=== PATIENT | male | born 1960 | race Caucasian/White ===

== ENCOUNTER 2017-04-29 20:12 | Emergency (ER) | payer BC ==
[2017-04-29] MEDS ORDERED: HYDROmorphone 1 MG/ML Syringe IVPUSH ONE ×2 (20:38→23:10)
[2017-04-29] MEDS ORDERED: Ondansetron 4 MG/2 ML SDV IVPUSH ONE (20:39)
--- NOTE | 2017-04-29 20:43 | EDM.PDOC ---
ED HPI GENERAL MEDICAL PROBLEM - General Chief Complaint: Genitourinary Problem Stated Complaint: RI SI PAIN Time Seen by Provider: 04/29/17 20:28 Source of Information: Reports: Patient History Limitations: Reports: No Limitations - History of Present Illness INITIAL COMMENTS - FREE TEXT/NARRATIVE: 57 years old male patient presented with right flank pain started around 3 PM. Constant. Radiates forward to his right side right lower quadrant and right groin area. Constant. Aching. Associated with nausea but no vomiting. Denies any fever. Also complaining of urinary frequency, urgency and feeling of incomplete emptying. Denies any blood in the urine or stool. Denies any diarrhea or constipation. Denies any chest pain or shortness breath. Nothing makes the pain better or worse. Right Groin Pain Score (Numeric/FACES): 10 - Related Data Allergies Allergy/AdvReac Type Severity Reaction Status Date / Time No Known Allergies Allergy Verified 04/29/17 20:20 Past Medical History Cardiovascular History: Reports: Hypertension Genitourinary History: Reports: Renal Calculus - Past Surgical History GI Surgical History: Reports: Appendectomy Social & Family History - Tobacco Use Smoking Status *Q: Unknown Ever Smoked ED ROS GENERAL - Review of Systems Review Of Systems: ROS reveals no pertinent complaints other than HPI. ED EXAM, RENAL/ - Physical Exam Exam: See Below Exam Limited By: No Limitations General Appearance: Alert, WD/WN, No Apparent Distress Ears: Normal External Exam, Normal Canal, Hearing Grossly Normal, Normal TMs Throat/Mouth: Normal Inspection, Normal Lips, Normal Teeth, Normal Gums, Normal Oropharynx, Normal Voice, No Airway Compromise Head: Atraumatic, Normocephalic Neck: Normal Inspection, Supple, Non-Tender, Full Range of Motion Respiratory/Chest: No Respiratory Distress, Lungs Clear, Normal Breath Sounds, No Accessory Muscle Use, Chest Non-Tender Cardiovascular: Normal Peripheral Pulses, Regular Rate, Rhythm, No Edema, No Gallop, No JVD, No Murmur, No Rub GI/Abdominal: Normal Bowel Sounds, Soft, Non-Tender, No Distention, No Abnormal Bruit, No Mass, Pelvis Stable, Tender, Other (Mild tenderness on the right flank area and right side of his abdomen.). No: Distended, Guarding, Rigid, Rebound, Mass, Hepatomegaly, Splenomegaly Course - Vital Signs Last Recorded V/S: Last Vital Signs Temp 36.9 C 10/14/17 21:35 Pulse 74 04/29/17 21:35 Resp 15 04/29/17 21:35 BP 164/96 H 04/29/17 21:35 Pulse Ox 92 L 04/29/17 21:35 - Orders/Labs/Meds Orders: Active Orders 24 hr Category Date Time Status Abdomen Pelvis wo Cont [CT] Urgent Exams 04/29/17 20:35 Taken Sodium Chloride 0.9% [Normal Saline] 1,000 ml Med 04/29/17 20:45 Active IV .BOLUS Sodium Chloride 0.9% [Normal Saline] 1,000 ml Med 04/29/17 23:15 Active IV ASDIRECTED Medication Orders Sodium Chloride (Normal Saline) 1,000 mls @ 999 mls/hr IV .BOLUS ASHISH Last Admin: 04/29/17 21:09 Dose: 999 mls/hr Sodium Chloride (Normal Saline) 1,000 mls @ 125 mls/hr IV ASDIRECTED ASHISH Last Admin: 04/29/17 23:28 Dose: 125 mls/hr Labs: Laboratory Tests 04/29/17 04/29/17 04/29/17 Range/Units 20:53 20:53 21:03 WBC 12.1 H (4.5-11.0) K/uL RBC 4.85 (4.30-5.90) M/uL Hgb 15.1 H (12.0-15.0) g/dL Hct 43.4 (40.0-54.0) % MCV 90 (80-98) fL MCH 31 (27-31) pg MCHC 35 (32-36) % Plt Count 226 (150-400) K/uL Neut % (Auto) 71 H (36-66) % Lymph % (Auto) 20 L (24-44) % [place] % (Auto) 7 H (2-6) % Eos % (Auto) 1 L (2-4) % Baso % (Auto) 1 (0-1) % Sodium 142 (140-148) mmol/L Potassium 3.8 (3.6-5.2) mmol/L Chloride 108 (100-108) mmol/L Carbon Dioxide 27 (21-32) mmol/L Anion Gap 6.8 (5.0-14.0) mmol/L BUN 18 (7-18) mg/dL Creatinine 1.2 (0.8-1.3) mg/dL Est Cr Clr Drug Dosing 80.87 mL/min Estimated GFR (MDRD) > 60 (>60) Glucose 120 H (74-106) mg/dL Calcium 9.1 (8.5-10.1) mg/dL Total Bilirubin 0.3 (0.2-1.0) mg/dL AST 27 (15-37) U/L ALT 61 (12-78) U/L Alkaline Phosphatase 93 (46-116) U/L Total Protein 7.4 (6.4-8.2) g/dL Albumin 4.0 (3.4-5.0) g/dL Globulin 3.4 (2.3-3.5) g/dL Albumin/Globulin Ratio 1.2 (1.2-2.2) Lipase 102 (73-393) U/L Urine Color Yellow Urine Appearance Clear Urine pH 5.0 (4.5-8.0) Ur Specific [place] 1.025 (1.008-1.030) Urine Protein Negative (NEGATIVE) mg/dL Urine Glucose (UA) Normal (NEGATIVE) mg/dL Urine Ketones Negative (NEGATIVE) mg/dL Urine Occult Blood Large (NEGATIVE) Urine Nitrite Negative (NEGAITVE) Urine Bilirubin Negative (NEGATIVE) Urine Urobilinogen Normal (NORMAL) mg/dL Ur Leukocyte Esterase Negative (NEGATIVE) Urine RBC 30-40 H (0-5) Urine WBC Not seen (0-5) Ur Epithelial Cells Rare Amorphous Sediment Not seen Urine Bacteria Rare Urine Mucus Few Meds: Medications Generic Name Dose Route Start Last Admin Trade Name Fremilvia PRN Reason Stop Dose Admin Sodium Chloride 1,000 mls @ 999 mls/hr 04/29/17 20:45 04/29/17 21:09 Normal Saline IV 999 mls/hr .BOLUS ASHISH Administration Sodium Chloride 1,000 mls @ 125 mls/hr 04/29/17 23:15 04/29/17 23:28 Normal Saline IV 125 mls/hr ASDIRECTED ASHISH Administration Discontinued Medications Generic Name Dose Route Start Last Admin Trade Name Mojgan PRN Reason Stop Dose Admin Ceftriaxone Sodium 2 gm/ 0 gm 04/29/17 23:16 Lidocaine HCl 2.1 ml IV 04/29/17 23:17 ONETIME ONE Hydromorphone HCl 1 mg 04/29/17 20:38 04/29/17 21:14 Dilaudid IVPUSH 04/29/17 20:39 1 mg ONETIME ONE Administration Hydromorphone HCl 1 mg 04/29/17 23:10 04/29/17 23:27 Dilaudid IVPUSH 04/29/17 23:11 1 mg ONETIME ONE Administration Ondansetron HCl 4 mg 04/29/17 20:39 04/29/17 21:12 Zofran IVPUSH 04/29/17 20:40 4 mg ONETIME ONE Administration Tamsulosin HCl 0.4 mg 04/29/17 23:10 04/29/17 23:28 Flomax PO 04/29/17 23:11 0.4 mg ONETIME ONE Administration - Re-Assessments/Exams Free Text/Narrative Re-Assessment/Exam: 04/29/17 20:42 Patient was seen and examined shortly after arrival. Given 1 L normal saline bolus, 1 mg IV Dilaudid x2 and 4 mg IV Zofran. Lab and imaging reviewed with the patient. CT shows right-sided ureteric stone 8mm and another one in the distal ureter 3 mm. Hydronephrosis. Also fatty liver and small area of hypodense lesion in the liver. Patient was advised to follow-up with his primary doctor and possibly ultrasound for further evaluation. Case was discussed was urologist Dr. anderson. He recommended transferring the patient and admission to the hospitalist service and he can be consulted. Patient was also given 0.4 of oral Flomax. And 2 g of Rocephin IV as prophylaxis. Case was also discussed with hospitalist physician Dr. blue and he accepts transfer. Patient agrees with the plan. Stable for transfer. 23:08 04/29/17 23:14 04/29/17 23:33 Departure - Departure Time of Disposition: 23:33 Disposition: DC/Tfer to Acute Hospital 02 Condition: Good Clinical Impression: Ureteric stone, Hydronephrosis, Liver cyst - Discharge Information Referrals: PCP,None [Primary Care Provider] - Forms: ED Department Discharge - My Orders Last 24 Hours: My Active Orders 04/29/17 20:35 Abdomen Pelvis wo Cont [CT] Urgent 04/29/17 20:45 Sodium Chloride 0.9% [Normal Saline] 1,000 ml IV .BOLUS 04/29/17 23:15 Sodium Chloride 0.9% [Normal Saline] 1,000 ml IV ASDIRECTED - Assessment/Plan Last 24 Hours: My Active Orders 04/29/17 20:35 Abdomen Pelvis wo Cont [CT] Urgent 04/29/17 20:45 Sodium Chloride 0.9% [Normal Saline] 1,000 ml IV .BOLUS 04/29/17 23:15 Sodium Chloride 0.9% [Normal Saline] 1,000 ml IV ASDIRECTED Plan: Transferred to [facility]
[2017-04-29] MEDS ORDERED: Sodium Chloride 0.9% 1,000 ML IV SCH ×2 (20:45→23:15)
[2017-04-29] MEDS ORDERED: Tamsulosin 0.4 MG Cap.ER PO ONE (23:10)
[2017-04-29] MEDS ORDERED: cefTRIAXone 2 GM, Lidocaine 1% 2.1 ML IV ONE ×2 (23:16)
[2017-04-29] MEDS ORDERED: cefTRIAXone 2 GM in Sodium Chloride 0.9% 50 ML IV ONE (23:49)
[2017-04-29] MEDS ORDERED: Ketorolac 30 MG/ML SDV IVPUSH ONE (23:51)
== END 2017-04-30 01:30 ==
LOC: JP.ED 20:12
DX: N13.2 Hydronephrosis with renal and ureteral calculous obstruction (principal); K76.89 Other specified diseases of liver; I10 Essential (primary) hypertension
CPT/HCPCS: 36415; 74176; 80053; 81001; 83690; 85025; 96361; 96365; 96375; 96376; 99285; A9270; J0696; J1170; J1885; J2405; J7040; J7050